=== PATIENT | female | born 1985 | race Caucasian/White ===

== ENCOUNTER 2018-05-17 14:03 | Outpatient (CLI) | payer OTHER | END 2018-05-17 14:04 | disposition home or self-care (01) | LOC: DTY/OP 14:03 | PROVIDERS: ATTEND Surgery | DX: I10 Essential (primary) hypertension (principal); G47.30 Sleep apnea, unspecified | CPT/HCPCS: 97802 ==

== ENCOUNTER 2018-07-26 12:05 | Inpatient (IN) | payer OTHER ==
[2018-07-26 14:15] VITALS: BMI 45.7
[2018-08-02] MEDS ORDERED: Heparin 5,000 UNITS/ML VIAL ONE (06:30)
[2018-08-02] MEDS ORDERED: CEFAZOLIN/Water 2 GM/20 ML SYRINGE ONE (06:30)
[2018-08-02] MEDS ORDERED: Bupivacaine/Epinephrine 0.25% 30 ML VIAL ONE (06:35)
[2018-08-02] MEDS ORDERED: HYDROmorphone 2 MG/ML VIAL ONE (07:17)
[2018-08-02] MEDS ORDERED: Fentanyl 100 MCG/2 ML VIAL ONE (07:17)
[2018-08-02] MEDS ORDERED: Midazolam HCl 2 mg/2 ml Vial ONE ×2 (07:17→07:22)
[2018-08-02] MEDS ORDERED: Lidocaine 1% (PF) 30 ML VIAL ONE (07:17)
[2018-08-02] MEDS ORDERED: diphenhydrAMINE 25 MG CAP PO PRN (07:23)
[2018-08-02] MEDS ORDERED: diphenhydrAMINE 50 MG/ML VIAL IM PRN (07:23)
[2018-08-02] MEDS ORDERED: diphenhydrAMINE 50 MG/ML VIAL IVP PRN ×2 (07:23→09:04)
[2018-08-02] MEDS ORDERED: Ondansetron HCl/PF 4 MG/2 ML Vial IVP PRN ×2 (07:23)
[2018-08-02] MEDS ORDERED: HYDROmorphone 2 MG/ML VIAL SLOW IVP PRN (07:23)
[2018-08-02] MEDS ORDERED: HYDROmorphone 10 mg/100 ml CADD IVPB PRN (07:23)
[2018-08-02] MEDS ORDERED: Promethazine HCl 25 MG/ML VIAL IM PRN ×3 (07:23→09:04)
[2018-08-02] MEDS ORDERED: Naloxone HCl 0.4 mg/ml Vial IV PRN (07:23)
[2018-08-02] MEDS ORDERED: Promethazine HCl 25 MG/ML VIAL SLOW IVP PRN (07:23)
[2018-08-02] MEDS ORDERED: Zolpidem Tartrate 5 MG TAB PO PRN (07:23)
[2018-08-02] MEDS ORDERED: Meperidine HCl/PF 25 MG/ML VIAL SLOW IVP PRN (07:23)
[2018-08-02] MEDS ORDERED: Communication Order-Pharmacy FS SCH (07:30)
--- NOTE | 2018-08-02 07:41 | HP ---
CHIEF COMPLAINT: Morbid obesity. HISTORY: The patient is a 33-year-old female who has been overweight for many years and attempted [facility] without success, here for sleeve gastrectomy. PAST MEDICAL HISTORY: Significant for headaches, chronic pain, arthritis. PAST SURGICAL HISTORY: Include abdominoplasty, , bilateral tubal ligation, D&C. MEDICATIONS: Aspirin. ALLERGIES: No known drug allergies. FAMILY HISTORY: Father has diabetes. Mother has hypertension. SOCIAL HISTORY: She is a former smoker, does drink alcohol socially. She is a medical practice administrator. S he is . PHYSICAL EXAMINATION: VITAL SIGNS: Height 61, weight 242, body mass index 45.7, blood pressure 132/75, pulse 94. GENERAL: Well-developed, well-nourished female in no apparent distress. HEENT: Good hair growth. No alopecia. Pupils equal, round, and reactive. Extraocular motor intact . Pharynx clear. Good dentition. NECK: Supple, no thyroid masses, no carotid bruits. LUNGS: Clear. HEART: Regular rate and rhythm. BREASTS: There are no palpable breast masses. No lymphadenopathy. ABDOMEN: Soft, nondistended, nontender, good bowel sounds. Well-healed surgical scars. EXTREMITIES: Good pulses. No pedal edema. BACK: No tenderness, no spinal deformity. ASSESSMENT: Morbid obesity with comorbidities. PLAN: Laparoscopic sleeve gastrectomy. CONSENT: I discussed the planned procedure as well as risk of bleeding, infection, injury to esophag us, spleen, loops of bowel, need to open, leakage from staple line. She understands and gives inform ed consent.
[2018-08-02] MEDS ORDERED: hydrALAZINE 20 MG/ML VIAL SLOW IVP PRN (09:04)
[2018-08-02] MEDS ORDERED: Dextrose 50% Abboject 50 ML SYRINGE SLOW IVP PRN (09:04)
[2018-08-02] MEDS ORDERED: Dextrose 5% in Water 1,000 ML IV PRN (09:04)
[2018-08-02] MEDS ORDERED: Hydrocodone-Acetamin 15 ML UDCUP PO PRN (09:04)
--- NOTE | 2018-08-02 10:42 | OP ---
PREOPERATIVE DIAGNOSIS: Morbid obesity. SURGEON: Earl Beyer M.D. PROCEDURE PERFORMED: Laparoscopic sleeve gastrectomy, esophagogastroscopy. INDICATIONS: A 33-year-old female, morbidly obese, who has attempted multiple weight loss programs w [facility]. FINDINGS: A 38 [place] bougie used. PROCEDURE IN DETAIL: After informed consent was obtained, the patient was taken to the operating margarito m and given general endotracheal anesthesia. She was placed in the supine position. Her abdomen was prepped and draped in usual fashion. Local anesthesia infiltrated subcutaneously and deep. A 12 mm incision was performed approximately 8 inches below the xiphoid slightly to the left. Veress needle inserted. Drop test performed. Pneumoperitoneum was created to a volume of 2 liters of carbon diox jose. Utilizing a bladeless 12 mm trocar and 0 degree laparoscope, direct visual entry in the abdomin al cavity was performed. Pneumoperitoneum was then created to a pressure of 15 mmHg and the patient placed in steep reverse Trendelenburg position. Nathansen liver retractor inserted. Left lobe of li padmaja retracted superiorly. The pylorus identified, a 12 mm port placed on the right beneath it and tw o 12s placed left subcostal. The omentum was taken off the greater curvature 5 cm from the pylorus u tilizing the LigaSure. Short gastrics divided with the LigaSure and left crura defined with the Liga Sure. A 38-Slovenian bougie inserted directed into the antrum. The linear 60 mm green load stapler use d to divide the antrum to the bougie, a gold load used along the bougie, and a series of blues along the bougie through the angle of His. Intraoperative endoscopy was then performed. The video endosco pe inserted under direct vision and advanced into the sleeve. The staple line inspected. There was no bleeding. Staple line then tested by inflating the new stomach with pressurized air under water, there was no air leak. Stomach decompressed. Scope removed. The remnant stomach removed from the a bdomen through the left lateral port site. The fascia closed with 0 Vicryl suture and the GraNee nee dle. Trocars and retractors removed. Skin closed with interrupted 4-0 Rapide. Dermabond applied. The patient tolerated the procedure well and was transferred to recovery in good condition. Sponge a nd needle count verified correct x2.
[2018-08-02] MEDS ORDERED: Glycopyrrolate 0.2 MG/ML 5 ML SYRINGE ONE (11:59)
[2018-08-02] MEDS ORDERED: Ketorolac Tromethamine 30 MG/ML VIAL ONE (11:59)
[2018-08-02] MEDS ORDERED: PROPOFOL 200 MG/20 ML VIAL ONE (11:59)
[2018-08-02] MEDS ORDERED: Ondansetron HCl/PF 4 MG/2 ML Vial ONE (11:59)
[2018-08-02] MEDS ORDERED: Lidocaine 1% PF 5 ML VIAL ONE (11:59)
[2018-08-02] MEDS ORDERED: Dexamethasone 20 MG/5 ML VIAL ONE (11:59)
[2018-08-02] MEDS: D5 1/2 NS w/20 mEq KCL 1,000 ML IV SCH ×3 (12:01→23:17)
[2018-08-02] MEDS: Ketorolac Tromethamine 30 MG/ML VIAL IVP SCH ×3 (12:02→23:16)
[2018-08-02] MEDS: Acetaminophen 1,000 MG in Premix Bag 1 BAG IVPB SCH ×3 (12:04→23:50)
[2018-08-02] MEDS: Ondansetron HCl/PF 4 MG/2 ML Vial IVP PRN ×2 (13:56→23:17)
[2018-08-02] MEDS: CEFAZOLIN/Water 2 GM/20 ML SYRINGE SLOW IVP SCH ×2 (16:19→23:16)
[2018-08-03 05:19] LABS: #Monocytes 1.3 thou/uL (0.11-0.59); #Neutrophils 8.4 thou/uL (1.40-6.50); %Basophils 0.1 % (0.0-1.0); %Eosinophils 0.2 % (0.0-10.0); %Lymphocytes 17.1 % (21.0-51.0); %Monocytes 10.7 % (0.0-10.0); %Neutrophils 71.8 % (42.0-75.0); Hemoglobin 10.5 g/dL (12.0-16.0); Mean Corpuscular HGB CONC 33.3 g/dL (32.0-36.0); Mean Corpuscular Volume 75.3 fL (78.0-98.0); Mean Platelet Volume 9.8 fL (7.4-10.4); Platelet Count 292 thou/uL (130-400); RBC Distribution Width 16.9 % (11.5-14.5); Red Blood Cell (RBC) Count 4.21 mill/uL (4.20-5.40); White Blood Cell (WBC) Count 11.7 thou/uL (4.8-10.8)
[2018-08-03 05:37] LABS: Anion Gap 9 mmol/L (10-20); BUN (Urea Nitrogen) Less than 4 mg/dL (7.0-18.7); Calc. Creatinine Clearance 195 mL/min (70-130); Calcium 8.9 mg/dL (7.8-10.44); Carbon Dioxide 24 mmol/L (22-29); Chloride 107 mmol/L (98-107); Estimated GFR-MDRD Greater than 90; Glucose 121 mg/dL (70-105); Potassium 3.6 mmol/L (3.5-5.1); Sodium 136 mmol/L (136-145)
[2018-08-03] MEDS: Acetaminophen 1,000 MG in Premix Bag 1 BAG IVPB SCH (05:51)
[2018-08-03] MEDS: Ketorolac Tromethamine 30 MG/ML VIAL IVP SCH (05:52)
[2018-08-03] MEDS ORDERED: Enoxaparin Sodium 40 MG/0.4 ML SYRINGE SC SCH (06:00)
[2018-08-03 08:56] VITALS: BP 144/86; TEMP 98.8
[2018-08-03] MEDS ORDERED: Pantoprazole 40 MG VIAL IVP SCH (09:00)
[2018-08-03] MEDS: D5 1/2 NS w/20 mEq KCL 1,000 ML IV SCH (09:37)
--- NOTE | 2018-08-03 10:12 | RAD ---
SINGLE CONTRAST UPPER GI: CLINICAL HISTORY: Recent gastric vertical sleeve procedure. Postoperative evaluation. FINDINGS: Here is appropriate contrast passage through the esophagus and postoperative gastric lumen, into the proximal small bowel. There is no abnormal leakage of contrast. RADIATION EXPOSURE DATA: 0.2 minutes intermittent fluoroscopy and 1.4 uGy*^cm2. IMPRESSION: No fluoroscopic evidence of gastric leak. POS: RHIANNON
--- NOTE | 2018-08-03 12:12 | DIS ---
DISCHARGE DIAGNOSIS: Morbid obesity. PROCEDURES DURING ADMISSION: Laparoscopic sleeve gastrectomy, intraoperative esophagogastroscopy, po stoperative Gastrografin swallow. HOSPITAL COURSE: The patient was admitted, taken to the operating room where she underwent a sleeve gastrectomy. Postoperatively, she has done well. She is tolerating liquids well. Her pain is contr olled on p.o. medication. She is discharged home on hydrocodone and Zofran. She will follow up with me in 2 weeks.
[2018-08-04] MEDS ORDERED: Enoxaparin Sodium 40 MG/0.4 ML SYRINGE SC SCH (09:00)
== END 2018-08-03 11:37 | disposition home or self-care (01) | DRG 621 ==
LOC: SURG A 08-02 06:00 → SURG B 08-02 10:37
PROVIDERS: ADMIT Surgery; ATTEND Surgery
PROC: 0DB64Z3 Excision of Stomach, Percutaneous Endoscopic Approach, Vertical (ICD-10-PCS; principal; 2018-08-02)
PROC: 0DJ68ZZ Inspection of Stomach, Via Natural or Artificial Opening Endoscopic (ICD-10-PCS; 2018-08-02)
DX: E66.01 Morbid (severe) obesity due to excess calories (principal); Z68.42 Body mass index [BMI] 45.0-49.9, adult; Z87.891 Personal history of nicotine dependence
CPT/HCPCS: 36415; 74241; 80048; 85025; 88307; 88312; 94760; C9113; J0131; J0360; J1100; J1170; J1644; J1650; J1885; J2001; J2250; J2405; J2550; J2704; J3010

== ENCOUNTER 2018-07-26 14:05 | Outpatient (CLI) | payer OTHER ==
[2018-07-26 15:15] LABS: BHCG - Serum Negative (NEGATIVE); Pregs Control Background? CLEAR/WHITE (CLR/WHITE); Pregs Control Bar Appear? YES (CONTROL BAR)
[2018-07-26 15:28] LABS: #Basophils 0.1 thou/uL (0.0-0.2); #Eosinphils 0.1 thou/uL (0.0-0.7); #Lymphocytes 2.7 thou/uL (1.20-3.40); #Monocytes 0.6 thou/uL (0.11-0.59); #Neutrophils 4.7 thou/uL (1.40-6.50); %Eosinophils 1.1 % (0.0-10.0); %Lymphocytes 33.2 % (21.0-51.0); %Monocytes 6.8 % (0.0-10.0); Anisocytosis SLIGHT = 6-15 cells (100X) (0-5/hpf); Hemoglobin 11.1 g/dL (12.0-16.0); Hemoglobin A1c 5.1 % (4.0-6.0); MDiff Complete? YES; Mean Corpuscular HGB CONC 33.6 g/dL (32.0-36.0); Mean Corpuscular Hemoglobin 25.1 pg (27.0-31.0); Mean Corpuscular Volume 74.8 fL (78.0-98.0); Mean Platelet Volume 9.5 fL (7.4-10.4); PLT Morphology Comment Appears Adequate; Platelet Count 304 thou/uL (130-400); RBC Distribution Width 17.1 % (11.5-14.5); White Blood Cell (WBC) Count 8.1 thou/uL (4.8-10.8)
[2018-07-26 15:32] LABS: ALT (SGPT) 15 U/L (8-55); AST (SGOT) 16 U/L (5-34); Albumin 4.5 g/dL (3.5-5.0); Alkaline Phosphatase 74 U/L (40-150); Anion Gap 13 mmol/L (10-20); BUN (Urea Nitrogen) 12 mg/dL (7.0-18.7); Bilirubin, Direct 0.3 mg/dL (0.1-0.3); Bilirubin, Total 0.8 mg/dL (0.2-1.2); Calc. Creatinine Clearance 0 mL/min (70-130); Calcium 9.4 mg/dL (7.8-10.44); Carbon Dioxide 22 mmol/L (22-29); Chloride 105 mmol/L (98-107); Estimated GFR-MDRD Greater than 90; Globulin 3.6 g/dL (2.4-3.5); Glucose 79 mg/dL (70-105); Potassium 3.8 mmol/L (3.5-5.1); Protein, Total 8.1 g/dL (6.0-8.3); Sodium 136 mmol/L (136-145)
--- NOTE | 2018-07-26 16:28 | RAD ---
CHEST TWO VIEWS: 07/26/18 HISTORY: Preop. FINDINGS: The cardiac silhouette and pulmonary vasculature are unremarkable. Mediastinum is midline. No conflue nt air space consolidation, pneumothorax or pleural fluid. IMPRESSION: No active cardiopulmonary abnormalities are demonstrated. POS: ANNIEH
== END 2018-07-26 14:06 | disposition home or self-care (01) ==
LOC: LABBT 14:05
PROVIDERS: ATTEND Surgery
DX: Z01.818 Encounter for other preprocedural examination (principal); E66.01 Morbid (severe) obesity due to excess calories
CPT/HCPCS: 71046; 80053; 80076; 83036; 84703; 85025; 93005; 93010

== ENCOUNTER 2021-12-17 13:20 | Emergency (ER) | payer OTHER, SELFPAY ==
[2021-12-17] MEDS ORDERED: traMADol HCl 50 MG TAB ONE (14:32)
== END 2021-12-17 15:50 | disposition home or self-care (01) ==
LOC: ERS 13:20
DX: S20.212A Contusion of left front wall of thorax, initial encounter (principal); S80.11XA Contusion of right lower leg, initial encounter; I10 Essential (primary) hypertension; V89.2XXA Person injured in unspecified motor-vehicle accident, traffic, initial encounter